=== PATIENT | female | born 1985 | race Two or more races ===

== ENCOUNTER 2016-07-17 22:30 | Emergency (ER) | payer BC ==
--- NOTE | 2016-07-18 06:48 | ER ---
ADMIT: 07/17/2016 RM/LOC: ER [facility] MR#: [id number] [id number] [facility] [address] [place] [address] Emergency Room Report SEX: F AGE: 30 : 1985 DATE: 07/17/2016 The patient is a 30-year-old female, complaining of lower abdominal crampy pain with dysuria, off and on for the past 60 days. Exam remarkable for nontoxic, afebrile female. Urine, negative . Otherwise, 2+ leukocyte esterase, 1+ blood, 4 wbc's, and 8 rbc's. The patient treated with Bactrim double-strength b.i.d. x3 days, first dose in department; doxycycline 100 mg b.i.d. x14 days, 200 mg load in department; Pyridium 95 mg two p.o. in department and two p.o. t.i.d. p.r.n., dispensed 10. Follow up Marilynn Alejandre as needed. Ray Khalil MD/ orion JOB #: [id number] CC: Ray Khalil MD, Attending Physician Marilynn Alejandre APRN, GAS REGULATOR REPAIRER HELPER-C, Family Physician Marilynn Alejandre APRN, GAS REGULATOR REPAIRER HELPER-C
== END 2016-07-18 02:21 | disposition home or self-care (01) ==
LOC: ER 22:30
DX: N30.90 Cystitis, unspecified without hematuria (principal); N34.2 Other urethritis; F32.9 Major depressive disorder, single episode, unspecified; F41.9 Anxiety disorder, unspecified; Z79.899 Other long term (current) drug therapy